=== PATIENT | female | born 1935 ===

== ENCOUNTER 2017-09-28 10:21 | Outpatient (CLI) | payer OTHER ==
[~2017-09-28] VITALS: Ht 154.9 cm; Wt 47.6 kg
== END 2017-09-28 10:45 | disposition home or self-care (01) ==
LOC: OFIC 805 10:21
DX: H90.3 Sensorineural hearing loss, bilateral (principal); H61.23 Impacted cerumen, bilateral; R42 Dizziness and giddiness

== ENCOUNTER 2017-11-23 07:49 | Outpatient (CLI) | payer OTHER ==
[~2017-11-23] VITALS: Ht 152.4 cm; Wt 47.6 kg
== END 2017-11-23 08:10 | disposition home or self-care (01) ==
LOC: OFIC 805 07:49
DX: H61.23 Impacted cerumen, bilateral (principal); R42 Dizziness and giddiness

== ENCOUNTER 2018-02-19 08:06 | Outpatient (CLI) | payer OTHER ==
[~2018-02-19] VITALS: Ht 152.4 cm; Wt 47.6 kg
== END 2018-02-19 08:20 | disposition home or self-care (01) ==
LOC: OFIC 805 08:06
DX: H90.3 Sensorineural hearing loss, bilateral (principal); R42 Dizziness and giddiness